=== PATIENT | male | born 1950 | race Caucasian/White ===

== ENCOUNTER 2022-09-20 13:17 | Outpatient (CLI) | payer MEDICARE | END 2022-09-20 13:18 | disposition home or self-care (01) | LOC: CSHWCC 13:17 | PROVIDERS: ATTEND Nurse Practitioner Family | DX: I87.333 Chronic venous hypertension (idiopathic) with ulcer and inflammation of bilateral lower extremity (principal); E11.621 Type 2 diabetes mellitus with foot ulcer; L97.512 Non-pressure chronic ulcer of other part of right foot with fat layer exposed; L97.811 Non-pressure chronic ulcer of other part of right lower leg limited to breakdown of skin; L97.822 Non-pressure chronic ulcer of other part of left lower leg with fat layer exposed; R60.0 Localized edema | CPT/HCPCS: 29581; 97139; G0463; 99204 ==

== ENCOUNTER 2022-10-15 11:33 | Outpatient (CLI) | payer MEDICARE | END 2022-10-15 11:34 | disposition home or self-care (01) | LOC: CSHWCC 11:33 | PROVIDERS: ATTEND Nurse Practitioner Family | DX: E11.621 Type 2 diabetes mellitus with foot ulcer (principal); L97.512 Non-pressure chronic ulcer of other part of right foot with fat layer exposed; I87.332 Chronic venous hypertension (idiopathic) with ulcer and inflammation of left lower extremity; L97.822 Non-pressure chronic ulcer of other part of left lower leg with fat layer exposed; R60.0 Localized edema | CPT/HCPCS: 29581; 97597 ==

== ENCOUNTER 2022-10-29 12:58 | Outpatient (CLI) | payer MEDICARE | END 2022-10-29 12:59 | disposition home or self-care (01) | LOC: CSHWCC 12:58 | PROVIDERS: ATTEND Nurse Practitioner Family | DX: E11.621 Type 2 diabetes mellitus with foot ulcer (principal); L97.512 Non-pressure chronic ulcer of other part of right foot with fat layer exposed; I87.332 Chronic venous hypertension (idiopathic) with ulcer and inflammation of left lower extremity; L97.822 Non-pressure chronic ulcer of other part of left lower leg with fat layer exposed; R60.0 Localized edema | CPT/HCPCS: 29581 ==

== ENCOUNTER 2022-12-21 15:26 | Outpatient (CLI) | payer MEDICARE, OTHER | END 2022-12-21 15:27 | disposition home or self-care (01) | LOC: CSHWCC 15:26 | PROVIDERS: ATTEND Physician Assistant | DX: I87.312 Chronic venous hypertension (idiopathic) with ulcer of left lower extremity (principal); E11.621 Type 2 diabetes mellitus with foot ulcer; E66.9 Obesity, unspecified | CPT/HCPCS: 29581; 97597 ==

== ENCOUNTER 2023-02-27 11:20 | Outpatient (CLI) | payer MEDICARE, OTHER | END 2023-02-27 11:21 | disposition home or self-care (01) | LOC: CSHWCC 11:20 | PROVIDERS: ATTEND Preventive Medicine Undersea and Hyperbaric Medicine | CPT/HCPCS: 11042; 29581 ==